=== PATIENT | male | born 1955 | race Caucasian/White ===

== ENCOUNTER 2018-06-23 12:27 | Emergency (ER) | payer OTHER ==
[2018-06-23 12:45] VITALS: BP 120/64; PULSE 56; TEMP 97.9; BMI 27.6
--- NOTE | 2018-06-23 13:21 | PDOC ---
History of Present Illness - General Chief Complaint: Injury Stated Complaint: INJURY Time Seen by Provider: 06/23/18 12:45 History Source: Patient Exam Limitations: No Limitations Past History - Past Medical History Allergies/Adverse Reactions: Allergies Allergy/AdvReac Type Severity Reaction Status Date / Time No Known Allergies Allergy Verified 06/23/18 12:40 Home Medications: Ambulatory Orders Levothyroxine [Synthroid -] 75 mcg PO DAILY 06/23/18 COPD: No Thyroid Disease: Yes (hypo) - Immunization History Immunization Up to Date: No - Suicide/Smoking/Psychosocial Hx Smoking History: Unknown if ever smoked *Physical Exam - Vital Signs Last Vital Signs Temp Pulse Resp BP Pulse Ox 97.9 F 56 L 16 120/64 06/23/18 12:43 06/23/18 12:43 06/23/18 12:43 06/23/18 12:43 Moderate Sedation - Procedure Monitoring Vital Signs: Procedure Monitoring Vital Signs Temperature 97.9 F 06/23/18 12:43 Pulse Rate 56 L 06/23/18 12:43 Respiratory Rate 16 06/23/18 12:43 Blood Pressure 120/64 06/23/18 12:43 O2 Sat by Pulse Oximetry (%) ED Treatment Course - RADIOLOGY Radiology Studies Ordered: Category Date Time Status CERVICAL SPINE CT W/O CONTR [CT] Stat CT Scan 06/23/18 13:[address] WITHOUT CONTRAST [CT] Stat CT Scan 06/23/18 13:00 Ordered *DC/Admit/Observation/Transfer Diagnosis at time of Disposition: Laceration of forehead Qualifiers: Encounter type: initial encounter Qualified Code(s): S01.81XA - Laceration without foreign body of other part of head, initial encounter - Discharge Dispostion Disposition: HOME Decision to Admit order: No - Referrals Referrals: ON STAFF,NOT [Primary Care Provider] - [facility] [Provider Group] - Patient Instructions Printed Discharge Instructions: How to Care for a Laceration After Repair Additional Instructions: you were evaluated in the emergency department for your laceration secondary to a fall. head CT and neck CT showed no acute fractures or intracranial bleeds. Your right shoulder xray was negative for fracture and dislocation. Your laceration was repaired with sutures. please keep these sutures on for 7 days and return to our emergency department for removal. please keep this area dry and do not submerge underwater. do not wear tight fitting headgear on your head while you have these sutures in place. please return to the emergency department sooner if your sutures break. please return to the emergency department if you have fever/chills, headaches, nausea/vomiting, dizziness, and visual changes. thank you. - Post Discharge Activity
[2018-06-23] MEDS ORDERED: DIPHTH,PERTUSS(ACELL),TET 0.5 ML DISP.SYRIN IM ONE ×2 (15:13→15:14)
[2018-06-23] MEDS ORDERED: BACITRACIN 15 GM TUBE TOPICAL OINTMENT TP ONE (15:13)
[2018-06-23] MEDS ORDERED: LIDOCAINE 1%/EPI 1:100000 (20 ML MULTI DOSE VIAL) ONE (15:26)
--- NOTE | 2018-06-23 15:27 | PDOC ---
Attending Attestation - HPI HPI: 06/23/18 15:29 CC: Laceration to the forehead s/p fall. HPI: The patient is a 63 year old male, with a significant past medical history of hypothyroidism, who presents to the emergency department s/p fall with a laceration to the forehead. As per patient, he was sitting on a dirt bank when he slid down then fell approximately 4-6ft. He endorses pain to the right shoulder. He denies any LOC. He denies any recent fevers, chills, headache or dizziness. He denies any recent nausea, vomit, diarrhea or constipation. He denies any recent chest pain or shortness of breath. He denies any recent dysuria, frequency, urgency or hematuria. Allergies: NKDA Past surgical history: None reported. - Physicial Exam PE: 06/23/18 15:29 Exam: Vitals: Triage Vital signs reviewed General Appearance: no acute distress, well nourished well developed, Head: 3cm laceration to the forehead and hairline. Abrasion to the left eyebrow. Neck: Supple;No Nuchal rigidity Chest Wall: Nontender Cardiac: Regular rate and rhythm, no murmurs, no rubs, no gallops, Lungs: Clear to auscultation bilateral, good air movement bilaterally, Abdomen: Soft, nondistended, normal bowel sounds, nontender to palpation Rectal: Exam deferred +Extremities:Abrasions to the bilateral hands. Neuro: AOX3; Cranial Nerves 2-12 grossly intact, Strength intact to all extremities, Sensation intact to all extremities Psych: normal mood, normal affect <Braxton Dominguez - Last Filed: 06/23/18 15:29> - Resident Resident Name: Narciso Shepherd - ED Attending Attestation I have performed the following: I have examined & evaluated the patient, The case was reviewed & discussed with the resident, I agree w/resident's findings & plan, Exceptions are as noted - Medical Decision Making 06/23/18 16:37 Mechanical slip and fall with head injury shoulder injury. Normal neurologic examination. Head CT cervical spine CT and x-rays negative for acute pathology. Laceration to had thoroughly irrigated and approximated with sutures. Very strict wound care and return instructions discussed with patient. Findings, need for follow-up and strict return instructions discussed. <Joaquín Olvera - Last Filed: 06/23/18 16:37> Attestations - Attestations 06/23/18 15:29 Documentation prepared by Barxton Dominguez, acting as medical insurance collector for Joaquín Olvera MD. <Braxton Dominguez - Last Filed: 06/23/18 15:29>
[2018-06-23] MEDS ORDERED: BACITRACIN 0.9 GM PACKET ONE (16:40)
== END 2018-06-23 16:40 | disposition home or self-care (01) ==
LOC: JER 12:27
PROC: 3E0234Z Introduction of Serum, Toxoid and Vaccine into Muscle, Percutaneous Approach (ICD-10-PCS; principal; 2018-06-23)
PROC: 0HQ1XZZ Repair Face Skin, External Approach (ICD-10-PCS; 2018-06-23)
DX: S01.81XA Laceration without foreign body of other part of head, initial encounter (principal); W18.39XA Other fall on same level, initial encounter; Y93.89 Activity, other specified; Y92.89 Other specified places as the place of occurrence of the external cause; E03.9 Hypothyroidism, unspecified
CPT/HCPCS: 70450-TC; 71045-TC-FY; 72125-TC; 73030-TC-RT-FY; 90715; 99282-25

== ENCOUNTER 2018-07-01 11:41 | Emergency (ER) | payer OTHER ==
[2018-07-01 12:04] VITALS: BP 133/83; PULSE 63; TEMP 98.2; BMI 27.6
--- NOTE | 2018-07-01 12:59 | PDOC ---
Suture Removal/Wound Check HPI - History of Present Illness Chief Complaint: Suture/Staple Removal(Here) Stated Complaint: SUTURES REMOVED,SUTURED HERE Time Seen by Provider: 07/01/18 12:42 History Source: Yes: Patient Exam Limitations: Yes: No Limitations Treated at: [facility] ED - Previous ED Treatment Type of procedure performed on last visit: Yes: Laceration Repair Tetanus Immunization: Yes: Up to Date Antibiotics Prescribed: No Past History - Travel Traveled outside of the country in the last 30 days: No Close contact w/someone who was outside of country & ill: No - Past Medical History Allergies/Adverse Reactions: Allergies Allergy/AdvReac Type Severity Reaction Status Date / Time No Known Allergies Allergy Verified 06/23/18 12:40 Home Medications: Ambulatory Orders Levothyroxine [Synthroid -] 75 mcg PO DAILY 06/23/18 COPD: No Dialysis: No Thyroid Disease: Yes (hypo) - Surgical History Cholecystectomy: No Lung Surgery: No - Immunization History Immunization Up to Date: No - Suicide/Smoking/Psychosocial Hx Smoking History: Never smoked Have you smoked in the past 12 months: No Information on smoking cessation initiated: No Hx Alcohol Use: No Drug/Substance Use Hx: No Suture Removal/Wound Check PE - Physical Exam Laceration/Wound Check Symptoms: reports: None Current Severity Level: None Maximum Severity Level: None Pain Localization: None Location of Laceration/Wound: right: Head *Review of Systems - Review of Systems Able to Perform ROS?: Yes Constitutional: Yes: Symptoms Reported, See HPI. No: Fever HEENTM: Yes: See HPI. No: Symptoms Reported Respiratory: No: Symptoms reported Integumentary: Yes: Symptoms Reported, See HPI, Other (scabbing ) All Other Systems: Reviewed and Negative *Physical Exam - Vital Signs Last Vital Signs Temp Pulse Resp BP Pulse Ox 98.2 F 63 16 133/83 99 07/01/18 12:02 07/01/18 12:02 07/01/18 12:02 07/01/18 12:02 07/01/18 12:02 - Physical Exam General Appearance: Yes: Nourished, Appropriately Dressed, Other (7 sutures intact to foreehead with scabbing ). No: Apparent Distress HEENT: positive: SURAJ, TMs Normal Extremity: positive: Normal Capillary Refill Integumentary: positive: Normal Color Neurologic: positive: web site specialist II-XII NML intact, Fully Oriented, Alert, Normal Mood/ Affect, Normal Response, Motor Strength 5/5 Moderate Sedation - Procedure Monitoring Vital Signs: Procedure Monitoring Vital Signs Temperature 98.2 F 07/01/18 12:02 Pulse Rate 63 07/01/18 12:02 Respiratory Rate 16 07/01/18 12:02 Blood Pressure 133/83 07/01/18 12:02 O2 Sat by Pulse Oximetry (%) 99 07/01/18 12:02 Medical Decision Making - Medical Decision Making 07/01/18 13:31 7 sutures removed without incident, dressedv with bacitracin *DC/Admit/Observation/Transfer Diagnosis at time of Disposition: Visit for suture removal - Discharge Dispostion Disposition: HOME Condition at time of disposition: Stable Decision to Admit order: No - Referrals - Patient Instructions Printed Discharge Instructions: DI for Suture Removal Additional Instructions: Rest, avoid strenuous activity or exercise until scabbing is completely resolved May use bacitracin ointment until scabbing is gone After may use vitamin E oil, poke hole in vitamin E capsule and use oil from the capsule on wound- may help resolve some of the discoloration of the scar Keep wound out of the sun for at least one year to avoid darkening of scar tissue - Post Discharge Activity
== END 2018-07-01 13:36 | disposition home or self-care (01) ==
LOC: JERFT 11:41
DX: Z48.02 Encounter for removal of sutures (principal)
CPT/HCPCS: 99281-25